=== PATIENT | female | born 1995 | race Caucasian/White ===

== ENCOUNTER 2016-09-05 12:39 | Emergency (ER) | payer OTHER ==
[~2016-09-05 12:39] MED LIST: NORCO1 TA1 PO; PERCOCET1 TA1 PO
--- NOTE | 2016-09-05 16:06 | DIAGNOSTIC IMAGING REPORT ---
PROCEDURE: US OB 1ST TRIMESTER W/TRANSVAG INDICATION: ABNORMAL BLEEDING TECHNIQUE: Jj scale, color, and spectral Doppler transabdominal sonographic images of the first trimester gravid uterus were obtained. COMPARISON: OB ultrasound 01/07/2015 FINDINGS: TRANSABDOMINAL SCANS: No parts visualized. the cervix is closed and measures 4 cm. Debris or clot is seen in the lower uterine segment and this measures 2 x 6 by 0.6 x 1.5 cm. Maternal ovaries appear normal IMPRESSION: 1. No parts visualized. clot or debris in the lower uterine segment.
--- NOTE | 2016-09-05 16:35 | ED CLINICAL REPORT ---
Clinical Report - Physicians/Mid Levels [facility] [address] [place] [address] 09/05/2016 12:40 Patient: BETH ROUSSEAU Time Seen: 12:52; initial patient contact. Historian- patient. HISTORY OF PRESENT ILLNESS Chief Complaint: ABDOMINAL PAIN. At its maximum, severity described as moderate. When seen in the E.D., severity described as moderate. Modifying factors. Not worsened by anything. Not relieved by anything. This started today and is still present. It is described as "pain" and cramping. No radiation. It is described as located in the suprapubic area. The patient has had nausea. No vomiting or diarrhea. Similar symptoms previously: None. Recent medical care: The patient was seen recently at another facility in the emergency department. REVIEW OF SYSTEMS No constipation, difficulty with urination, pain with urination or difficulty breathing. She has had abnormal bleeding. All systems otherwise negative, except as recorded above. PAST HISTORY UTI - Urinary Tract Infection. Dehydration. Vomiting. Sick Contact. Panic Attack. Pyelonephritis. Migraine Headache Tension-Type Headache Paresthesia Headache SURGERIES: . SOCIAL HISTORY Never smoker. No alcohol use or drug use. ADDITIONAL NOTES The nursing notes have been reviewed with agreement regarding the chief complaint, PMH and patient medications and allergies. PHYSICAL EXAM Appearance: Alert. Oriented X3. No acute distress. Eyes: Eyes normal inspection. ENT: Pharynx normal. CVS: Normal heart rate and rhythm. Heart sounds normal. Respiratory: No respiratory distress. Breath sounds normal. Abdomen: Soft. Moderate tenderness in the suprapubic area with guarding present. No rebound tenderness. Bowel sounds normal. Back: No CVA tenderness. : Normal external exam. Moderate vaginal bleeding, consisting of dark blood, via the cervical os. Bimanual exam normal. No tenderness present on bimanual exam. Enlarged uterus- above the symphysis. (Female Landscape Architect present Silvia REY). Skin: Skin warm and dry. Normal skin color. No rash. Extremities: No lower extremity edema. Neuro: Oriented X 3. LABS, X-RAYS, AND EKG Pelvic Sonogram: 1. No parts visualized. clot or debris in the lower uterine segment. Study type: bedside. The study was interpreted by the radiologist and discussed with the radiologist. Prior studies were not available for comparison. Interpretation time: 16:33. Laboratory Tests: UA-Culture if indicated: (CONSUELO: 09/05/2016 13:20) ( [facility] [place] 09/05/2016 13:55) Final results Test Result Flag Units (Reference) URINE COLOR YELLOW URINE APPEARANCE CLEAR URINE GLUCOSE NEGATIVE (NEGATIVE) URINE BILIRUBIN NEGATIVE (NEGATIVE) URINE KETONE NEGATIVE (NEGATIVE) URINE SPECIFIC GRAVITY 1.020 (1.010-1.030) URINE PH 6.0 (5.0-8.0) URINE PROTEIN NEGATIVE (NEGATIVE) URINE UROBILINOGEN 0.2 EU/dL (0.2-1.0) URINE NITRITE NEGATIVE (NEGATIVE) URINE BLOOD 3+ (NEGATIVE) URINE LEUK ESTERASE NEGATIVE (NEGATIVE) URINE RBC 25-50 rbc/hpf (0-1) URINE WBC NONE SEEN wbc/hpf (0-1) URINE EPITHELIAL CELLS NONE SEEN EPI/hpf (0-5) URINE BACTERIA NONE SEEN (NONE SEEN) URINE COMMENT CULT NOT INDICATED FEW CALCIUM OXALATE CRYSTALSTRACE MUCUSURINE CULTURES ARE SET-UP BASED ON THE FOLLOWING CRITERIA:POSITIVE NITRITEPOSITIVE LEUKOCYTE ESTERASEGREATER THAN 10 WHITE BLOOD CELLSMODERATE (2+) OR GREATER BACTERIA CBC w Diff: (CONSUELO: 09/05/2016 13:00) ( [facility] [place] 09/05/2016 13:29) Final results Test Result Flag Units (Reference) WHITE BLOOD COUNT 7.8 K/uL (4.5-11.5) RED BLOOD COUNT 4.28 M/uL (4.00-5.20) HEMOGLOBIN 12.9 gm/dL (12.0-16.0) HEMATOCRIT 38.9 % (36.0-46.0) MEAN CELL VOLUME 91 fL (80-100) MEAN CORPUSCULAR HGB 30 pg (26-34) MEAN CORPUSCULAR HGB CONC 33 g/dL (31-37) RED CELL DISTRIBUTION WIDTH 11.7 % (11.6-14.8) PLATELET COUNT 210 K/uL (150-400) NEUTROPHIL % 64.7 % (50-75) LYMPH % 26.6 % (25-40) MONO % 6.2 % (3-14) EOSINOPHIL % 2.3 % (0-4) BASOPHIL % 0.2 % (0-2) Serum Quantitative: (CONSUELO: 09/05/2016 13:00) ( MsgRcvd 09/05/2016 14:09) Final results Test Result Flag Units (Reference) BETA HCG, QUANTITATIVE 1870 mIU/mL REFERENCE RANGE:Adult Males: <2 mIU/mLNon- Females: <6 mIU/mL Females:Approximate Approximate hCGGestational Age Range (mIU/mL) 0-1 week 0-501-2 weeks 40-3002-3 weeks 100-22610-7 weeks 500-29081-4 months 5,000-200,0002-3 months 10,000-100,0002nd trimester 3,000-50,0003rd trimester 1,000-50,000 BMP: (CONSUELO: 09/05/2016 13:00) ( [facility] [place] 09/05/2016 13:35) Final results Test Result Flag Units (Reference) GLUCOSE 80 mg/dL (70-110) BUN 10 mg/dL (7-18) CREATININE 0.6 mg/dL (0.6-1.3) Estimated GFR >60 mL/min Estimated GFR- >60 mL/min Note: Persistent reduction over 3 months in eGFR<60 mL/min/1.73 m2 defines CKD. Patients with eGFR values>=60 mL/min/1.73 m2 may also have CKD if evidence ofpersistent proteinuria. Additional information may be foundat www.kidney.org. SODIUM 137 mmol/L (136-145) POTASSIUM 3.4 L mmol/L (3.5-5.1) CHLORIDE 102 mmol/L (98-107) CARBON DIOXIDE 26 mmol/L (21-32) CALCIUM 8.5 mg/dL (8.5-10.1) . PROGRESS AND PROCEDURES Course of Care: 14:43 09/05/16. Reviewed records form Prov. beta HCG on 08/16 30,945, 08/18 31,809. Pt states 2 days ago was around 4,000. U/S on 08/23/16 findings suspicious for failure, no yolk sac or pole w/ 2 small perigestational hemorrhages seen. Disposition: Discharged home in good and improved condition. Condition: good. CLINICAL IMPRESSION Complete spontaneous (miscarriage).No complications. INSTRUCTIONS Your Current Medications: CONTINUE TAKING THE FOLLOWING MEDICATIONS: Vitamins Oral. Zofran ODT Oral. Prescription Medications: Hydrocodone/APAP 5mg / 325mg: take 1 orally every 6 hours as needed for pain. Dispense fifteen (15). No refill. Zofran (orally disintegrating tablets) 4 mg: take 1 orally every 6 hours as needed for nausea and vomiting. Dispense ten (10). No refill. Substitution is permissible. Follow-up: Follow up with your doctor in about two days. Call for an appointment. Screening today revealed the patient's blood pressure to be in the pre-hypertensive range. The patient should follow up with a primary care provider for blood pressure management. (Electronically signed by Krunal Enrique Dr. 09/05/2016 22:37)
--- NOTE | 2016-09-05 16:35 | ED CLINICAL REPORT ---
Clinical Report - Physicians/Mid Levels [facility] [address] [place] [address] 09/05/2016 12:40 Patient: BETH ROUSSEAU Time Seen: 12:52; initial patient contact. Historian- patient. HISTORY OF PRESENT ILLNESS Chief Complaint: ABDOMINAL PAIN. At its maximum, severity described as moderate. When seen in the E.D., severity described as moderate. Modifying factors. Not worsened by anything. Not relieved by anything. This started today and is still present. It is described as "pain" and cramping. No radiation. It is described as located in the suprapubic area. The patient has had nausea. No vomiting or diarrhea. Similar symptoms previously: None. Recent medical care: The patient was seen recently at another facility in the emergency department. REVIEW OF SYSTEMS No constipation, difficulty with urination, pain with urination or difficulty breathing. She has had abnormal bleeding. All systems otherwise negative, except as recorded above. PAST HISTORY UTI - Urinary Tract Infection. Dehydration. Vomiting. Sick Contact. Panic Attack. Pyelonephritis. Migraine Headache Tension-Type Headache Paresthesia Headache SURGERIES: . SOCIAL HISTORY Never smoker. No alcohol use or drug use. ADDITIONAL NOTES The nursing notes have been reviewed with agreement regarding the chief complaint, PMH and patient medications and allergies. PHYSICAL EXAM Appearance: Alert. Oriented X3. No acute distress. Eyes: Eyes normal inspection. ENT: Pharynx normal. CVS: Normal heart rate and rhythm. Heart sounds normal. Respiratory: No respiratory distress. Breath sounds normal. Abdomen: Soft. Moderate tenderness in the suprapubic area with guarding present. No rebound tenderness. Bowel sounds normal. Back: No CVA tenderness. : Normal external exam. Moderate vaginal bleeding, consisting of dark blood, via the cervical os. Bimanual exam normal. No tenderness present on bimanual exam. Enlarged uterus- above the symphysis. (Female Core Inspector present Silvia RYE). Skin: Skin warm and dry. Normal skin color. No rash. Extremities: No lower extremity edema. Neuro: Oriented X 3. LABS, X-RAYS, AND EKG Pelvic Sonogram: 1. No parts visualized. clot or debris in the lower uterine segment. Study type: bedside. The study was interpreted by the radiologist and discussed with the radiologist. Prior studies were not available for comparison. Interpretation time: 16:33. Laboratory Tests: UA-Culture if indicated: (CONSUELO: 09/05/2016 13:20) ( [facility] [place] 09/05/2016 13:55) Final results Test Result Flag Units (Reference) URINE COLOR YELLOW URINE APPEARANCE CLEAR URINE GLUCOSE NEGATIVE (NEGATIVE) URINE BILIRUBIN NEGATIVE (NEGATIVE) URINE KETONE NEGATIVE (NEGATIVE) URINE SPECIFIC GRAVITY 1.020 (1.010-1.030) URINE PH 6.0 (5.0-8.0) URINE PROTEIN NEGATIVE (NEGATIVE) URINE UROBILINOGEN 0.2 EU/dL (0.2-1.0) URINE NITRITE NEGATIVE (NEGATIVE) URINE BLOOD 3+ (NEGATIVE) URINE LEUK ESTERASE NEGATIVE (NEGATIVE) URINE RBC 25-50 rbc/hpf (0-1) URINE WBC NONE SEEN wbc/hpf (0-1) URINE EPITHELIAL CELLS NONE SEEN EPI/hpf (0-5) URINE BACTERIA NONE SEEN (NONE SEEN) URINE COMMENT CULT NOT INDICATED FEW CALCIUM OXALATE CRYSTALSTRACE MUCUSURINE CULTURES ARE SET-UP BASED ON THE FOLLOWING CRITERIA:POSITIVE NITRITEPOSITIVE LEUKOCYTE ESTERASEGREATER THAN 10 WHITE BLOOD CELLSMODERATE (2+) OR GREATER BACTERIA CBC w Diff: (CONSUELO: 09/05/2016 13:00) ( [facility] [place] 09/05/2016 13:29) Final results Test Result Flag Units (Reference) WHITE BLOOD COUNT 7.8 K/uL (4.5-11.5) RED BLOOD COUNT 4.28 M/uL (4.00-5.20) HEMOGLOBIN 12.9 gm/dL (12.0-16.0) HEMATOCRIT 38.9 % (36.0-46.0) MEAN CELL VOLUME 91 fL (80-100) MEAN CORPUSCULAR HGB 30 pg (26-34) MEAN CORPUSCULAR HGB CONC 33 g/dL (31-37) RED CELL DISTRIBUTION WIDTH 11.7 % (11.6-14.8) PLATELET COUNT 210 K/uL (150-400) NEUTROPHIL % 64.7 % (50-75) LYMPH % 26.6 % (25-40) MONO % 6.2 % (3-14) EOSINOPHIL % 2.3 % (0-4) BASOPHIL % 0.2 % (0-2) Serum Quantitative: (CONSUELO: 09/05/2016 13:00) ( MsgRcvd 09/05/2016 14:09) Final results Test Result Flag Units (Reference) BETA HCG, QUANTITATIVE 1870 mIU/mL REFERENCE RANGE:Adult Males: <2 mIU/mLNon- Females: <6 mIU/mL Females:Approximate Approximate hCGGestational Age Range (mIU/mL) 0-1 week 0-501-2 weeks 40-3002-3 weeks 100-40793-7 weeks 500-98930-4 months 5,000-200,0002-3 months 10,000-100,0002nd trimester 3,000-50,0003rd trimester 1,000-50,000 BMP: (CONSUELO: 09/05/2016 13:00) ( [facility] [place] 09/05/2016 13:35) Final results Test Result Flag Units (Reference) GLUCOSE 80 mg/dL (70-110) BUN 10 mg/dL (7-18) CREATININE 0.6 mg/dL (0.6-1.3) Estimated GFR >60 mL/min Estimated GFR- >60 mL/min Note: Persistent reduction over 3 months in eGFR<60 mL/min/1.73 m2 defines CKD. Patients with eGFR values>=60 mL/min/1.73 m2 may also have CKD if evidence ofpersistent proteinuria. Additional information may be foundat www.kidney.org. SODIUM 137 mmol/L (136-145) POTASSIUM 3.4 L mmol/L (3.5-5.1) CHLORIDE 102 mmol/L (98-107) CARBON DIOXIDE 26 mmol/L (21-32) CALCIUM 8.5 mg/dL (8.5-10.1) . PROGRESS AND PROCEDURES Course of Care: 14:43 09/05/16. Reviewed records form Prov. beta HCG on 08/16 30,945, 08/18 31,809. Pt states 2 days ago was around 4,000. U/S on 08/23/16 findings suspicious for failure, no yolk sac or pole w/ 2 small perigestational hemorrhages seen. Disposition: Discharged home in good and improved condition. Condition: good. CLINICAL IMPRESSION Complete spontaneous (miscarriage).No complications. INSTRUCTIONS Your Current Medications: CONTINUE TAKING THE FOLLOWING MEDICATIONS: Vitamins Oral. Zofran ODT Oral. Prescription Medications: Hydrocodone/APAP 5mg / 325mg: take 1 orally every 6 hours as needed for pain. Dispense fifteen (15). No refill. Zofran (orally disintegrating tablets) 4 mg: take 1 orally every 6 hours as needed for nausea and vomiting. Dispense ten (10). No refill. Substitution is permissible. Follow-up: Follow up with your doctor in about two days. Call for an appointment. Screening today revealed the patient's blood pressure to be in the pre-hypertensive range. The patient should follow up with a primary care provider for blood pressure management. (Electronically signed by Krunal Enrique Dr. 09/05/2016 22:37)
--- NOTE | 2016-09-05 16:35 | ED NURSING NOTES ---
Clinical Report - Nurses [facility] [place] [address] [address] 09/05/2016 12:40 Patient: BETH ROUSSEAU TRIAGE Triage time 12:44. Acuity: LEVEL 4. Chief Complaint: ABDOMINAL PAIN and CRAMPS and VAGINAL BLEEDING. 12:48 09/05/16. 12:48 09/05/16. ( Pt states that she had a miscarriage, and has bleeding since. This started one week ago.). --12:51 Zack Betts R.N. <<STRICKEN ENTRY-- 12:46 09/05/16. BP: 122/58. HR: 73. RR: 18. O2 saturation: 100% on room air. Temp: 97.7 F. Pain level now: 5/10. --12:51 Zack Betts R.N. --END STRIKE>> Correction. --16:51 Zack Betts R.N. 12:52 09/05/16. BP: 122/58. HR: 73. RR: 14. O2 saturation: 100% on room air. Temp: 97.7 F (oral). --16:53 Zack Betts R.N. Weight: 65.7 kg stated. Height/Length: 64 inches Per Patient. BMI: 24.9. --12:49 Zack Betts R.N. Medications Vitamins Oral. --12:47 Zack Betts R.N. Zofran ODT Oral. --12:47 Zack Betts R.N. Medication/allergy information source: the patient. --12:51 Zack Betts R.N. Allergies None. --12:47 Zack Betts R.N. History Arrived by private vehicle. Historian: patient. Accompanied by family. Primary physician (JM NORRIS). 12:48 09/05/16. Onset. (1 week ago). Treatment RESERVATION AGENT: None. PAST MEDICAL HX: Immunizations: up-to-date. SOCIAL HX: Never smoker. No alcohol use or drug use. No infectious disease exposure. ABUSE ASSESSMENT: No report of abuse. FALL RISK ASSESSMENT: Fall risk assessment completed. No fall risk identified. NUTRITIONAL RISK ASSESSMENT: The nutritional risk assessment revealed no deficiencies. FUNCTIONAL ASSESSMENT: Functional assessment: no impairments noted. LEARNING NEEDS ASSESSMENT: The learning needs assessment revealed no barriers. SKIN INTEGRITY ASSESSMENT: Skin integrity risk assessment completed. No skin integrity risk identified. --12:51 Zack Betts R.N. PROBLEMS: UTI - Urinary Tract Infection. Dehydration. Vomiting. Sick Contact. Panic Attack. Pyelonephritis. --12:47 Zack Betts R.N. Migraine Headache [RuleOut]. Tension-Type Headache [RuleOut]. Paresthesia [RuleOut]. Headache [RuleOut]. --12:47 Zack Betts R.N. ADDITIONAL SURGERIES: . --12:47 Zack Betts R.N. Assessment 12:48 09/05/16. --12:51 Zack Betts R.N. Interventions 12:48 09/05/16. 12:48 09/05/16. ID and allergy band on patient. To treatment room. --12:51 Zack Betts R.N. PHYSICAL ASSESSMENT 12:47 09/05/16. Ambulatory to room. GENERAL / NEURO / PSYCH: Oriented X 4. Appears in no acute distress. RESPIRATORY: Respirations not labored. GI / : Abdominal tenderness. SKIN: Skin is warm and dry. --12:47 Zack Betts R.N. NURSING PROGRESS NOTES 12:48 09/05/16. The plan of care for this patient has been created. Patient gowned. Head of bed elevated. Reassurance given. Two patient identifiers checked. Call light placed in reach. Side rails up x 2. Bed placed in lowest position. Brakes of bed on. Brakes of chair on. --12:48 Zack Betts R.N. 12:48 09/05/16. Patient ready for evaluation- chart flagged and notification provided. --12:48 Zack Betts R.N. 13:08 09/05/2016 Site #1 started via IV in the left antecubital space with an 20g angiocath, with aseptic technique and good blood return; one attempt. Blood drawn: rainbow set. Labeled in the presence of the patient and sent to the lab. Saline lock flushed with 10 mL saline. --13:08 Zack Betts R.N. 13:08 09/05/2016 Started bag #1 1000 mL IV Fluids IV NS (Saline); at 1000 mL/hr over 1 hour(s) via site #1 via IV pump. Allergies verified and confirmed 5 rights. IV patency established. IV site checked: no pain, redness, or swelling. IV flushed thoroughly pre- and post-medication administration. Completed per protocol. --13:08 Zack Betts R.N. 14:00 09/05/2016 IV Fluids IV NS Discontinued: bag #1 infused. Total amount infused: 1000 mL. IV patency established. IV site checked: no pain, redness, or swelling. IV flushed thoroughly. --14:00 Brian De Souza R.N. 14:47 09/05/16. PELVIC EXAM: Pelvic exam performed by ED physician. Assisted by one nurse. Preparation: pelvic tray; patient placed in lithotomy position. Procedure: speculum and bimanual exam. Vaginal discharge noted. Dark vaginal bleeding noted with clots. Status post-procedure: she was stable and no complications were noted. Total time of assist / procedure: 15 minutes. --14:47 Silvia Munoz R.N. 15:35 09/05/16. --15:35 Zack Betts R.N. 15:35 09/05/16. BP: 124/78. HR: 72. RR: 14. O2 saturation: 99% on room air. --15:35 Zack Betts R.N. 15:48 09/05/16. ( US completed). --15:48 Zack Betts R.N. DISPOSITION / DISCHARGE 16:50 09/05/2016 Site #1 removed upon discharge. Catheter intact. --16:50 Zack Betts R.N. 16:50 09/05/16. Condition at departure: improved. The goals identified in the patient's plan of care were met. No learning barriers present. Discharge instructions provided and reviewed with the patient and family. Reviewed warnings. Reviewed medication(s). Treatments reviewed. Patient and family verbalized understanding. Written instructions provided in Welsh. The patient was discharged by the physician. She was discharged home and accompanied by family. She left the Emergency Department ambulatory and via private vehicle. Family member driving. FALL RISK ASSESSMENT: Fall risk assessment completed. No fall risk identified. --16:50 Zack Betts R.N. <<EDY ENTRY-- 12:46 09/05/16. BP: 122/58. HR: 73. RR: 18. O2 saturation: 100% on room air. Temp: 97.7 F. Pain level now: 12/19. --16:50 Zack Betts R.N. --END STRIKE>> Correction. --16:51 Zack Betts R.N. <<STRICKEN ENTRY-- 16:51 09/05/16. Departure time: 16:50. --16:51 Zack Betts R.N. --END STRIKE>> Correction --16:51 Zack Betts R.N. 16:51 09/05/16. BP: 122/58. HR: 72. RR: 12. O2 saturation: 100% on room air. --16:51 Zack Betts R.N. <<STRICKEN ENTRY-- Departure time: 16:52. --16:51 Zack Betts R.N. --END STRIKE>> Correction --17:00 Zack Betts R.N. Departure time: 16:59. --16:59 Zack Betts R.N. Locked/Released at 09/05/2016 17:04 by Zack Betts R.N.
--- NOTE | 2016-09-05 16:35 | ED ORDER SUMMARY ---
..... Patient: BETH ROUSSEAU OrderSheet [facility] VisitID: [id number] [place] [address] 20y, F Registration Date/Time: 09/05/2016 ORDER SHEET Weight: 65.7 kg (stated) Allergies: None GENERAL ORDERS: CBC w Diff Urgent (13:07 09/05/2016 JBoardley R.N. per protocol) (13:22 JBoardley R.N.) BMP Urgent (13:09/05/2016 JBoardley R.N. per protocol) (13:22 JBoardley R.N.) UA-Culture if indicated Urgent (13:18 09/05/2016 Edmar Menjivar) (13:22 JBoardley R.N.) Serum Quantitative Urgent (13:18 09/05/2016 Edmar Menjivar) (13:22 JBoardley R.N.) US OB 1st Trimester w Transvag (06/01/16) ( demise confirmed 08/23/16 at Prov, now heavily bleeding) Urgent (14:46 09/05/2016 Edmar Menjivar) (Ack 14:49 LNations ER Tech1) (15:36 JBoardley R.N.) MEDICATION ORDERS: IV FLUIDS: IV NS : initial bolus none -, then 1000 mL/hr for X1 (NOW); Routine (13:07 09/05/2016 JBoardley R.N. per protocol) (13:08 JBoardley R.N.) IV Saline Lock (13:07 09/05/2016 JBoardley R.N. per protocol) (13:08 JBoardley R.N.) ORDER SHEET NOTES: [Electronically signed by Zack Betts R.N. (17:04 09/05/2016)] [Electronically signed by Krunal Enrique Dr. (22:37 09/05/2016)] [Electronically locked/signed by Zack Betts R.N. (17:04 09/05/2016)]
--- NOTE | 2016-09-05 16:35 | ED ORDER SUMMARY ---
..... Patient: BETH ROUSSEAU OrderSheet [facility] VisitID: [id number] [place] [address] 20y, F Registration Date/Time: 09/05/2016 ORDER SHEET Weight: 65.7 kg (stated) Allergies: None GENERAL ORDERS: CBC w Diff Urgent (13:07 09/05/2016 JBoardley R.N. per protocol) (13:22 JBoardley R.N.) BMP Urgent (13:09/05/2016 JBoardley R.N. per protocol) (13:22 JBoardley R.N.) UA-Culture if indicated Urgent (13:18 09/05/2016 Edmar Menjivar) (13:22 JBoardley R.N.) Serum Quantitative Urgent (13:18 09/05/2016 Edmar Menjivar) (13:22 JBoardley R.N.) US OB 1st Trimester w Transvag (06/01/16) ( demise confirmed 08/23/16 at Prov, now heavily bleeding) Urgent (14:46 09/05/2016 Edmar Menjivar) (Ack 14:49 LNations ER Tech1) (15:36 JBoardley R.N.) MEDICATION ORDERS: IV FLUIDS: IV NS : initial bolus none -, then 1000 mL/hr for X1 (NOW); Routine (13:07 09/05/2016 JBoardley R.N. per protocol) (13:08 JBoardley R.N.) IV Saline Lock (13:07 09/05/2016 JBoardley R.N. per protocol) (13:08 JBoardley R.N.) ORDER SHEET NOTES: [Electronically signed by Zack Betts R.N. (17:04 09/05/2016)] [Electronically signed by Krunal Enrique Dr. (22:37 09/05/2016)] [Electronically locked/signed by Zack Betts R.N. (17:04 09/05/2016)]
--- NOTE | 2016-09-05 22:37 | ED DISCHARGE INSTRUCTIONS ---
Patient: BETH ROUSSEAU General Instructions [facility] VisitID: [id number] [place] [address] 20y, F Registration Date/Time: 09/05/2016 Complete spontaneous (miscarriage).No complications. INSTRUCTIONS Your Current Medications: CONTINUE TAKING THE FOLLOWING MEDICATIONS: Vitamins Oral. Zofran ODT Oral. Prescription Medications: Hydrocodone/APAP 5mg / 325mg: take 1 orally every 6 hours as needed for pain. Dispense fifteen (15). No refill. Zofran (orally disintegrating tablets) 4 mg: take 1 orally every 6 hours as needed for nausea and vomiting. Dispense ten (10). No refill. Substitution is permissible. Follow-up: Follow up with your doctor in about two days. Call for an appointment. Screening today revealed the patient's blood pressure to be in the pre-hypertensive range. The patient should follow up with a primary care provider for blood pressure management. ADDITIONAL INFORMATION Miscarriage, Spontaneous (Completed) Todays exam shows that your has ended suddenly. While this may be an emotionally difficult time for you, know that it is not an uncommon event. A miscarriage can be due to various causes. These include a problem with the babys chromosomes (genes that carry the information needed for life) or with fertilization or implantation that didnt happen correctly. In most cases no cause can be found. Be assured that this miscarriage was not the result of anything that you did wrong, and it will not interfere with your ability to become in the future. It appears that your miscarriage is complete and all tissue from the has passed. If there are parts of the tissue that remain in the uterus, you will probably have more cramping and bleeding. Home Care: You may resume normal activities if you are not having heavy bleeding or pain. Until the bleeding stops completely and to prevent infection: Do not have sexual intercourse for as long as your healthcare provider tells you. Use sanitary pads instead of tampons. Do not douche. If you feel sadness or grief, it may help to talk about your feelings with family and friends, or with a counselor. Follow Up: Make an appointment to see your doctor in the next one to two weeks for a checkup. If cramping and bleeding return and continue for more than a few days, call your doctor or return here for an exam. The doctor may need to remove remaining tissue from the uterus to stop the bleeding and prevent infection. Or, you may be prescribed medication to take at home to help your body expel the remaining tissue. Note: If you had an ultrasound it will be reviewed by a specialist. You will be notified of any new findings that may affect your care. Get Prompt Medical Attention if any of the following occur: Heavy bleeding (soaking one new pad an hour over three hours) Bleeding that does not stop after ten days Foul-smelling vaginal discharge Fever of 100.4F (38C) or higher, or as directed by your healthcare provider Increasing lower abdominal pain Weakness, dizziness, or fainting Hydrocodone Bitartrate, Acetaminophen Oral tablet What is this medicine? ACETAMINOPHEN; HYDROCODONE (a set a FABIOLA buddy fen; kirby droe KOE done) is a pain reliever. It is used to treat mild to moderate pain. How should I use this medicine? Take this medicine by mouth. Swallow it with a full glass of water. Follow the directions on the prescription label. If the medicine upsets your stomach, take the medicine with food or milk. Do not take more than you are told to take. Talk to your fermenting cellars receiver regarding the use of this medicine in children. This medicine is not approved for use in children. What side effects may I notice from receiving this medicine? Side effects that you should report to your doctor or health rn coronary care unit as soon as possible: allergic reactions like skin rash, itching or hives, swelling of the face, lips, or tongue breathing problems confusion feeling faint or lightheaded, falls stomach pain yellowing of the eyes or skin Side effects that usually do not require medical attention (report to your doctor or health rn coronary care unit if they continue or are bothersome): nausea, vomiting stomach upset What may interact with this medicine? alcohol antihistamines isoniazid medicines for depression, anxiety, or psychotic disturbances medicines for sleep muscle relaxants naltrexone narcotic medicines (opiates) for pain phenobarbital ritonavir tramadol What if I miss a dose? If you miss a dose, take it as soon as you can. If it is almost time for your next dose, take only that dose. Do not take double or extra doses. Where should I keep my medicine? Keep out of the reach of children. This medicine can be abused. Keep your medicine in a safe place to protect it from theft. Do not share this medicine with anyone. Selling or giving away this medicine is dangerous and against the law. Store at room temperature between 15 and 30 degrees C (59 and 86 degrees F). Protect from light. Keep container tightly closed. Throw away any unused medicine after the expiration date. Discard unused medicine and used packaging carefully. Pets and children can be harmed if they find used or lost packages. What should I tell my health care provider before I take this medicine? They need to know if you have any of these conditions: brain tumor Crohn's disease, inflammatory bowel disease, or ulcerative colitis drink more than 3 alcohol-containing drinks per day drug abuse or addiction head injury heart or circulation problems kidney disease or problems going to the bathroom liver disease lung disease, asthma, or breathing problems an unusual or allergic reaction to acetaminophen, hydrocodone, other opioid analgesics, other medicines, foods, dyes, or preservatives or trying to get breast-feeding What should I watch for while using this medicine? Tell your doctor or health rn coronary care unit if your pain does not go away, if it gets worse, or if you have new or a different type of pain. You may develop tolerance to the medicine. Tolerance means that you will need a higher dose of the medicine for pain relief. Tolerance is normal and is expected if you take the medicine for a long time. Do not suddenly stop taking your medicine because you may develop a severe reaction. Your body becomes used to the medicine. This does NOT mean you are addicted. Addiction is a behavior related to getting and using a drug for a non-medical reason. If you have pain, you have a medical reason to take pain medicine. Your doctor will tell you how much medicine to take. If your doctor wants you to stop the medicine, the dose will be slowly lowered over time to avoid any side effects. You may get drowsy or dizzy when you first start taking the medicine or change doses. Do not drive, use machinery, or do anything that may be dangerous until you know how the medicine affects you. Stand or sit up slowly. There are different types of narcotic medicines (opiates) for pain. If you take more than one type at the same time, you may have more side effects. Give your health care provider a list of all medicines you use. Your doctor will tell you how much medicine to take. Do not take more medicine than directed. Call emergency for help if you have problems breathing. The medicine will cause constipation. Try to have a bowel movement at least every 2 to 3 days. If you do not have a bowel movement for 3 days, call your doctor or health rn coronary care unit. Too much acetaminophen can be very dangerous. Do not take Tylenol (acetaminophen) or medicines that contain acetaminophen with this medicine. Many non-prescription medicines contain acetaminophen. Always read the labels carefully. Ondansetron Oral disintegrating tablet What is this medicine? ONDANSETRON (on BRANDY se charisse) is used to treat nausea and vomiting caused by chemotherapy. It is also used to prevent or treat nausea and vomiting after surgery. How should I use this medicine? These tablets are made to dissolve in the mouth. Do not try to push the tablet through the foil backing. With dry hands, peel away the foil backing and gently remove the tablet. Place the tablet in the mouth and allow it to dissolve, then swallow. While you may take these tablets with water, it is not necessary to do so. Talk to your fermenting cellars receiver regarding the use of this medicine in children. Special care may be needed. What side effects may I notice from receiving this medicine? Side effects that you should report to your doctor or health rn coronary care unit as soon as possible: allergic reactions like skin rash, itching or hives, swelling of the face, lips, or tongue breathing problems dizziness fast or irregular heartbeat feeling faint or lightheaded, falls fever and chills swelling of the hands and feet tightness in the chest Side effects that usually do not require medical attention (report to your doctor or health rn coronary care unit if they continue or are bothersome): constipation or diarrhea headache What may interact with this medicine? Do not take this medicine with any of the following medications: -apomorphine -cisapride -dofetilide -dronedarone -pimozide -thioridazine -ziprasidone This medicine may also interact with the following medications: -carbamazepine -phenytoin -rifampicin -tramadol -other medicines that prolong the QT interval (cause an abnormal heart rhythm) What if I miss a dose? If you miss a dose, take it as soon as you can. If it is almost time for your next dose, take only that dose. Do not take double or extra doses. Where should I keep my medicine? Keep out of the reach of children. Store between 2 and 30 degrees C (36 and 86 degrees F). Throw away any unused medicine after the expiration date. What should I tell my health care provider before I take this medicine? They need to know if you have any of these conditions: heart disease history of irregular heartbeat liver disease low levels of magnesium or potassium in the blood an unusual or allergic reaction to ondansetron, granisetron, other medicines, foods, dyes, or preservatives or trying to get breast-feeding What should I watch for while using this medicine? Check with your doctor or health rn coronary care unit as soon as you can if you have any sign of an allergic reaction. You have been given the following additional information: Miscarriage, Spontaneous (Completed) Hydrocodone Bitartrate, Acetaminophen Oral tablet Ondansetron Oral disintegrating tablet (Electronically signed by Krunal Enrique Dr. 09/05/2016 22:37)
--- NOTE | 2016-09-05 22:37 | ED MED RECONCILIATION SUMMARY ---
Patient: BETH ROUSSEAU Medication Reconciliation Report [facility] VisitID: [id number] [place] [address] 20y, F Registration Date/Time: 09/05/2016 Weight: 65.7 kg Height/Length: 64 in. BMI: 24.9 ALLERGIES: None The patient's Home Medications are listed below: CONTINUE TAKING THE FOLLOWING MEDICATIONS: Vitamins Oral Zofran ODT Oral The source(s) of the original Home Medication information: patient The following Medications were given to the patient in the Emergency Department: IV NS IV Fluids bolus 0, then 1000 mL/hr, administered: 09/05/2016 1:08:00 PM The following Medications were prescribed to the patient: Hydrocodone/APAP 5mg / 325mg: take 1 orally every 6 hours as needed for pain. Dispense fifteen (15). No refill. -- Krunal nErique Dr. Zofran (orally disintegrating tablets) 4 mg: take 1 orally every 6 hours as needed for nausea and vomiting. Dispense ten (10). No refill. Substitution is permissible. -- Krunal Enrique Dr.
--- NOTE | 2016-09-05 22:37 | ED MAR SUMMARY ---
..... Medication Administration Record [facility] [address] [place] [address] Patient: BETH ROUSSEAU Visit ID: [id number] 20y, F Weight: 65.7 kg Height/Length: 64 in BMI: 24.9 ALLERGIES: None Start 13:08 09/05/2016 Zack Betts RValeriy, Stop 14:00 09/05/2016 Brian De Souza RValeriy Medication Administered: IV NS (SALINE), Dose: IV Fluids over 1 hour(s), Rate: 1000 mL/hr, Dispensed: 1000 mL bag, Site: #1 left AC. Medication Ordered: IV NS : initial bolus none -, then 1000 mL/hr for X1 (NOW); Routine.
--- NOTE | 2016-09-05 22:37 | ED MED RECONCILIATION SUMMARY ---
Patient: BETH ROUSSEAU Medication Reconciliation Report [facility] VisitID: [id number] [place] [address] 20y, F Registration Date/Time: 09/05/2016 Weight: 65.7 kg Height/Length: 64 in. BMI: 24.9 ALLERGIES: None The patient's Home Medications are listed below: CONTINUE TAKING THE FOLLOWING MEDICATIONS: Vitamins Oral Zofran ODT Oral The source(s) of the original Home Medication information: patient The following Medications were given to the patient in the Emergency Department: IV NS IV Fluids bolus 0, then 1000 mL/hr, administered: 09/05/2016 1:08:00 PM The following Medications were prescribed to the patient: Hydrocodone/APAP 5mg / 325mg: take 1 orally every 6 hours as needed for pain. Dispense fifteen (15). No refill. -- Krunal Enrique Dr. Zofran (orally disintegrating tablets) 4 mg: take 1 orally every 6 hours as needed for nausea and vomiting. Dispense ten (10). No refill. Substitution is permissible. -- Krunal Enrique Dr.
--- NOTE | 2016-09-05 22:37 | ED DISCHARGE INSTRUCTIONS ---
Patient: BETH ROUSSEAU General Instructions [facility] VisitID: [id number] [place] [address] 20y, F Registration Date/Time: 09/05/2016 Complete spontaneous (miscarriage).No complications. INSTRUCTIONS Your Current Medications: CONTINUE TAKING THE FOLLOWING MEDICATIONS: Vitamins Oral. Zofran ODT Oral. Prescription Medications: Hydrocodone/APAP 5mg / 325mg: take 1 orally every 6 hours as needed for pain. Dispense fifteen (15). No refill. Zofran (orally disintegrating tablets) 4 mg: take 1 orally every 6 hours as needed for nausea and vomiting. Dispense ten (10). No refill. Substitution is permissible. Follow-up: Follow up with your doctor in about two days. Call for an appointment. Screening today revealed the patient's blood pressure to be in the pre-hypertensive range. The patient should follow up with a primary care provider for blood pressure management. ADDITIONAL INFORMATION Miscarriage, Spontaneous (Completed) Todays exam shows that your has ended suddenly. While this may be an emotionally difficult time for you, know that it is not an uncommon event. A miscarriage can be due to various causes. These include a problem with the babys chromosomes (genes that carry the information needed for life) or with fertilization or implantation that didnt happen correctly. In most cases no cause can be found. Be assured that this miscarriage was not the result of anything that you did wrong, and it will not interfere with your ability to become in the future. It appears that your miscarriage is complete and all tissue from the has passed. If there are parts of the tissue that remain in the uterus, you will probably have more cramping and bleeding. Home Care: You may resume normal activities if you are not having heavy bleeding or pain. Until the bleeding stops completely and to prevent infection: Do not have sexual intercourse for as long as your healthcare provider tells you. Use sanitary pads instead of tampons. Do not douche. If you feel sadness or grief, it may help to talk about your feelings with family and friends, or with a counselor. Follow Up: Make an appointment to see your doctor in the next one to two weeks for a checkup. If cramping and bleeding return and continue for more than a few days, call your doctor or return here for an exam. The doctor may need to remove remaining tissue from the uterus to stop the bleeding and prevent infection. Or, you may be prescribed medication to take at home to help your body expel the remaining tissue. Note: If you had an ultrasound it will be reviewed by a specialist. You will be notified of any new findings that may affect your care. Get Prompt Medical Attention if any of the following occur: Heavy bleeding (soaking one new pad an hour over three hours) Bleeding that does not stop after ten days Foul-smelling vaginal discharge Fever of 100.4F (38C) or higher, or as directed by your healthcare provider Increasing lower abdominal pain Weakness, dizziness, or fainting Hydrocodone Bitartrate, Acetaminophen Oral tablet What is this medicine? ACETAMINOPHEN; HYDROCODONE (a set a FABIOLA buddy fen; kirby droe KOE done) is a pain reliever. It is used to treat mild to moderate pain. How should I use this medicine? Take this medicine by mouth. Swallow it with a full glass of water. Follow the directions on the prescription label. If the medicine upsets your stomach, take the medicine with food or milk. Do not take more than you are told to take. Talk to your [employer] piping designer regarding the use of this medicine in children. This medicine is not approved for use in children. What side effects may I notice from receiving this medicine? Side effects that you should report to your doctor or health patient care representative as soon as possible: allergic reactions like skin rash, itching or hives, swelling of the face, lips, or tongue breathing problems confusion feeling faint or lightheaded, falls stomach pain yellowing of the eyes or skin Side effects that usually do not require medical attention (report to your doctor or health patient care representative if they continue or are bothersome): nausea, vomiting stomach upset What may interact with this medicine? alcohol antihistamines isoniazid medicines for depression, anxiety, or psychotic disturbances medicines for sleep muscle relaxants naltrexone narcotic medicines (opiates) for pain phenobarbital ritonavir tramadol What if I miss a dose? If you miss a dose, take it as soon as you can. If it is almost time for your next dose, take only that dose. Do not take double or extra doses. Where should I keep my medicine? Keep out of the reach of children. This medicine can be abused. Keep your medicine in a safe place to protect it from theft. Do not share this medicine with anyone. Selling or giving away this medicine is dangerous and against the law. Store at room temperature between 15 and 30 degrees C (59 and 86 degrees F). Protect from light. Keep container tightly closed. Throw away any unused medicine after the expiration date. Discard unused medicine and used packaging carefully. Pets and children can be harmed if they find used or lost packages. What should I tell my health care provider before I take this medicine? They need to know if you have any of these conditions: brain tumor Crohn's disease, inflammatory bowel disease, or ulcerative colitis drink more than 3 alcohol-containing drinks per day drug abuse or addiction head injury heart or circulation problems kidney disease or problems going to the bathroom liver disease lung disease, asthma, or breathing problems an unusual or allergic reaction to acetaminophen, hydrocodone, other opioid analgesics, other medicines, foods, dyes, or preservatives or trying to get breast-feeding What should I watch for while using this medicine? Tell your doctor or health patient care representative if your pain does not go away, if it gets worse, or if you have new or a different type of pain. You may develop tolerance to the medicine. Tolerance means that you will need a higher dose of the medicine for pain relief. Tolerance is normal and is expected if you take the medicine for a long time. Do not suddenly stop taking your medicine because you may develop a severe reaction. Your body becomes used to the medicine. This does NOT mean you are addicted. Addiction is a behavior related to getting and using a drug for a non-medical reason. If you have pain, you have a medical reason to take pain medicine. Your doctor will tell you how much medicine to take. If your doctor wants you to stop the medicine, the dose will be slowly lowered over time to avoid any side effects. You may get drowsy or dizzy when you first start taking the medicine or change doses. Do not drive, use machinery, or do anything that may be dangerous until you know how the medicine affects you. Stand or sit up slowly. There are different types of narcotic medicines (opiates) for pain. If you take more than one type at the same time, you may have more side effects. Give your health care provider a list of all medicines you use. Your doctor will tell you how much medicine to take. Do not take more medicine than directed. Call emergency for help if you have problems breathing. The medicine will cause constipation. Try to have a bowel movement at least every 2 to 3 days. If you do not have a bowel movement for 3 days, call your doctor or health patient care representative. Too much acetaminophen can be very dangerous. Do not take Tylenol (acetaminophen) or medicines that contain acetaminophen with this medicine. Many non-prescription medicines contain acetaminophen. Always read the labels carefully. Ondansetron Oral disintegrating tablet What is this medicine? ONDANSETRON (on BRANDY se charisse) is used to treat nausea and vomiting caused by chemotherapy. It is also used to prevent or treat nausea and vomiting after surgery. How should I use this medicine? These tablets are made to dissolve in the mouth. Do not try to push the tablet through the foil backing. With dry hands, peel away the foil backing and gently remove the tablet. Place the tablet in the mouth and allow it to dissolve, then swallow. While you may take these tablets with water, it is not necessary to do so. Talk to your [employer] piping designer regarding the use of this medicine in children. Special care may be needed. What side effects may I notice from receiving this medicine? Side effects that you should report to your doctor or health patient care representative as soon as possible: allergic reactions like skin rash, itching or hives, swelling of the face, lips, or tongue breathing problems dizziness fast or irregular heartbeat feeling faint or lightheaded, falls fever and chills swelling of the hands and feet tightness in the chest Side effects that usually do not require medical attention (report to your doctor or health patient care representative if they continue or are bothersome): constipation or diarrhea headache What may interact with this medicine? Do not take this medicine with any of the following medications: -apomorphine -cisapride -dofetilide -dronedarone -pimozide -thioridazine -ziprasidone This medicine may also interact with the following medications: -carbamazepine -phenytoin -rifampicin -tramadol -other medicines that prolong the QT interval (cause an abnormal heart rhythm) What if I miss a dose? If you miss a dose, take it as soon as you can. If it is almost time for your next dose, take only that dose. Do not take double or extra doses. Where should I keep my medicine? Keep out of the reach of children. Store between 2 and 30 degrees C (36 and 86 degrees F). Throw away any unused medicine after the expiration date. What should I tell my health care provider before I take this medicine? They need to know if you have any of these conditions: heart disease history of irregular heartbeat liver disease low levels of magnesium or potassium in the blood an unusual or allergic reaction to ondansetron, granisetron, other medicines, foods, dyes, or preservatives or trying to get breast-feeding What should I watch for while using this medicine? Check with your doctor or health patient care representative as soon as you can if you have any sign of an allergic reaction. You have been given the following additional information: Miscarriage, Spontaneous (Completed) Hydrocodone Bitartrate, Acetaminophen Oral tablet Ondansetron Oral disintegrating tablet (Electronically signed by Krunal Enrique Dr. 09/05/2016 22:37)
--- NOTE | 2016-09-05 22:37 | ED MAR SUMMARY ---
..... Medication Administration Record [facility] [address] [place] [address] Patient: BETH ROUSSEAU Visit ID: [id number] 20y, F Weight: 65.7 kg Height/Length: 64 in BMI: 24.9 ALLERGIES: None Start 13:08 09/05/2016 Zack Betts RValeriy, Stop 14:00 09/05/2016 Brian De Souza RValeriy Medication Administered: IV NS (SALINE), Dose: IV Fluids over 1 hour(s), Rate: 1000 mL/hr, Dispensed: 1000 mL bag, Site: #1 left AC. Medication Ordered: IV NS : initial bolus none -, then 1000 mL/hr for X1 (NOW); Routine.
== END 2016-09-05 16:29 | disposition home or self-care (01) ==
LOC: ED SRH 12:39
DX: O03.9 Complete or unspecified spontaneous abortion without complication (principal)
CPT/HCPCS: 90004; 90047; 90197; 95059